=== PATIENT | male | born 1945 | race Caucasian/White ===

== ENCOUNTER → 2018-12-23 | Outpatient (CLI) | payer MEDICARE, BC ==
--- NOTE | 2018-12-25 04:57 | MR ---
EXAMINATION TYPE: MR lumbar spine wo con DATE OF EXAM: 12/23/2018 COMPARISON: None HISTORY: 73-year-old male Low back pain TECHNIQUE: Multiplanar, multisequence images of the lumbar spine were acquired. FINDINGS: Posterior cortical cyst in the left kidney measuring 1.2 cm. 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 Otherwise, no prevertebral or paravertebral soft tissue abnormality. There is a transitional lumbosacral segment is noted as a partially sacralized L5. A left L5 hemisacr alization is noted with degenerative assimilation joint on axial series image 3. Prior L4-L5 laminectomy change. Moderate degenerative disc disease above at L4-L5 with disc height loss, disc desiccation, disc bulgi ng. Mild degenerative disc disease at additional levels with desiccated and bulging discs. Hypertrophic facet arthropathy mid to lower lumbar spine and focal ligamentum flavum thickening at L3 -L4. Conus medullaris is normal. Scattered fatty Modic type II endplate changes noted. No suspicious bone marrow replacement. There is a grade 1 anterolisthesis at L4-L5. At T12-L1, minimal posterior disc bulge without significant canal or foraminal stenosis. At L1-L2, mild diffuse disc bulge without significant canal or foraminal stenosis. At L2-L3, no significant canal or foraminal stenosis. There is mild bulging disc towards the left min imally narrowing the inferior left neural foramen. At L3-L4, diffuse disc bulge with superimposed broad-based posterior disc protrusion, hypertrophic fa cet arthropathy, ligamentum flavum thickening, and resultant moderate narrowing of the spinal canal. Mild bilateral neural foraminal stenosis. At L4-L5, hypertrophic facet arthropathy, trace grade 1 anterolisthesis, and diffuse disc bulge. Dors al decompression of the spinal canal at this level. There is moderate to severe right neuroforaminal stenosis with possible impingement of the exiting right L4 nerve root here. At L5-S1, hypertrophic facet changes on the right causing mild neuroforaminal narrowing. No spinal ca nal stenosis. IMPRESSION: 1. 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 2. Accelerated degenerative disc disease at the segment above at L4-L5 with hypertrophic facet arthro terra, disc space loss, bulging disc, and grade 1 anterolisthesis. This contributes to moderate to se zia right neuroforaminal stenosis with possible impingement of the exiting right L4 nerve root. Laci elate for any radicular symptoms. Previous surgery with dorsal decompression of the spinal canal at t his level. 3. Moderate spondylotic change at the next level above at L3-L4 with broad-based posterior disc herni ation, marked ligamentum flavum flavum thickening, and facet arthropathy causing moderate spinal liz l stenosis and mild bilateral neuroforaminal stenosis. 4. Possible mild aneurysm infrarenal abdominal aorta 3.0 cm.
== END | disposition home or self-care (01) ==
LOC: RADMRIMAIN 08:03
PROVIDERS: ATTEND Internal Medicine
DX: M48.061 Spinal stenosis, lumbar region without neurogenic claudication (principal); M51.26 Other intervertebral disc displacement, lumbar region; M43.16 Spondylolisthesis, lumbar region; M51.36 Other intervertebral disc degeneration, lumbar region; M47.816 Spondylosis without myelopathy or radiculopathy, lumbar region; M46.96 Unspecified inflammatory spondylopathy, lumbar region; Z98.890 Other specified postprocedural states
CPT/HCPCS: 72148